=== PATIENT | female | born 2000 | race Two or more races ===

== ENCOUNTER 2024-09-08 12:05 | Emergency (ER) | payer SELFPAY ==
[~2024-09-08] VITALS: Ht 152.4 cm; Wt 63.6 kg
[~2024-09-08 12:05] MED LIST: LITH300C3 PO
[2024-09-08 12:19] VITALS: BP 114/83; PULSE 77; RESP 18; TEMP 98.1; O2SAT 100
[2024-09-08] MEDS: OXYMETAZOLINE HCL 0.05% 15 ML NASAL SPRAY NASAL ONE (13:58)
== END 2024-09-08 15:15 | disposition home or self-care (01) ==
LOC: EMS 12:21
DX: J06.9 Acute upper respiratory infection, unspecified (principal); F31.9 Bipolar disorder, unspecified; F12.90 Cannabis use, unspecified, uncomplicated; Z20.822 Contact with and (suspected) exposure to COVID-19
CPT/HCPCS: 87430; 99283